=== PATIENT | female | born 1975 | race African-American/Black ===

== ENCOUNTER 2017-05-24 07:26 | Inpatient (IN) | payer BC ==
[2017-05-24] MEDS ORDERED: Sodium Chloride 0.9% 2.5 ML Syringe FLUSH PRN (08:00)
[2017-05-24] MEDS ORDERED: ceFAZolin 2 GM in Premix Bag 1 BAG IV ONE (08:00)
[2017-05-24] MEDS ORDERED: Oxytocin/0.9 % Sodium Chloride 30 UNIT/500 ML BAG IV SCH (08:00)
[2017-05-24] MEDS ORDERED: Sodium Chloride 0.9% 10 ML Syringe FLUSH PRN (08:00)
[2017-05-24] MEDS ORDERED: Citric Acid/Sodium Citrate Solution 30 ML Cup PO SCH (08:00)
[2017-05-24] MEDS ORDERED: Lactated Ringers 1,000 ML IV SCH ×2 (08:00→10:15)
--- NOTE | 2017-05-24 08:21 | PCM.PREANE ---
Preanesthetic Assessment - Procedure Proposed Procedure: section - Anesthesia/Transfusion/Family Hx Anesthesia History: Prior Anesthesia Without Reaction Family History of Anesthesia Reaction: No Transfusion History: No Prior Transfusion(s) - Review of Systems Other: Reports: None - Physical Assessment NPO Status Date: 05/23/17 NPO Status Time: 23:55 Height: 1.6 m Weight: 102.058 kg ASA Class: 2 Mental Status: Alert & Oriented x3 Airway Class: Mallampati = 3 Dentition: Reports: Normal Dentition Thyro-Mental Finger Breadths: 3 Mouth Opening Finger Breadths: 3 ROM/Head Extension: Full Lungs: Clear to Auscultation, Normal Respiratory Effort Cardiovascular: Regular Rate, Regular Rhythm - Allergies Allergies/Adverse Reactions: Allergies Allergy/AdvReac Type Severity Reaction Status Date / Time No Known Allergies Allergy Verified 07/05/16 15:40 - Blood Blood Available: Yes Product(s) Available: PRBC - Acknowledgements Anesthesia Type Planned: Spinal (GETA if Spinal not obtained.) Pt an Appropriate Candidate for the Planned Anesthesia: Yes Alternatives and Risks of Anesthesia Discussed w Pt/Guardian: Yes Pt/Guardian Understands and Agrees with Anesthesia Plan: Yes PreAnesthesia Questionnaire Cardiovascular History: Reports: Hypertension (History of gestational hypertension) Gastrointestinal History: Reports: GERD - Past Surgical History Female Surgical History: Reports: Section - SUBSTANCE USE Smoking Status *Q: Never Smoker Second Hand Smoke Exposure: No Recreational Drug Use History: No - HOME MEDS Home Medications: Home Meds Amoxicillin 875 mg PO BID #20 tablet 07/05/16 [Rx] - CURRENT (IN HOUSE) MEDS Current Meds: Current Medications Citric Acid/Sodium Citrate (Bicitra Solution) 30 ml PO .ONCE CY Cefazolin Sodium/Dextrose 2 gm (/ Premix) 50 mls @ 100 mls/hr IV ONETIME ONE Stop: 05/24/17 08:29 Lactated Ringer's (Ringers, Lactated) 1,000 mls @ 500 mls/hr IV .BOLUS CY Oxytocin/Sodium Chloride (Oxytocin 30 Unit/500 Ml-Ns) 30 unit in 500 mls @ 250 mls/hr IV TITRATE CY Sodium Chloride (Saline Flush) 10 ml FLUSH ASDIRECTED PRN PRN Reason: Keep Vein Open Sodium Chloride (Saline Flush) 2.5 ml FLUSH ASDIRECTED PRN PRN Reason: Keep Vein Open
[2017-05-24] MEDS ORDERED: Oxytocin 10 Units/1 ML SDV ONE ×3 (08:25→10:03)
[2017-05-24] MEDS ORDERED: ePHEDrine 50 MG/ML SDV ONE (08:25)
[2017-05-24] MEDS ORDERED: Morphine PF 10 MG/10 ML SDV ONE (08:25)
[2017-05-24] MEDS ORDERED: fentaNYL 100 MCG/2 ML SDV ONE (08:25)
[2017-05-24] MEDS ORDERED: Sodium Chloride 0.9% 20 ML ONE (08:26)
[2017-05-24] MEDS ORDERED: Ondansetron 4 MG/2 ML SDV ONE (08:26)
[2017-05-24] MEDS ORDERED: ceFAZolin 1 GM Vial ONE (08:30)
[2017-05-24] MEDS ORDERED: Acetaminophen/oxyCODONE 325-5 MG Tab PO PRN ×2 (08:50→10:10)
[2017-05-24] MEDS ORDERED: diphenhydrAMINE 50 MG/ML SDV IVPUSH PRN ×2 (08:51→10:10)
[2017-05-24] MEDS ORDERED: Nalbuphine 10 MG/1 ML Vial IVPUSH PRN (08:51)
[2017-05-24] MEDS ORDERED: fentaNYL 100 MCG/2 ML SDV IVPUSH PRN (08:51)
[2017-05-24] MEDS ORDERED: Naloxone 0.4 MG/ML Syringe IVPUSH PRN (08:51)
--- NOTE | 2017-05-24 09:02 | PCM.LDHP ---
L&D History of Present Illness - General Date of Service: 05/24/17 Admit Problem/Dx: Patient Status Order with Admit Dx/Problem 05/24/17 08:00 Patient Status [ADT] Routine Admission Diagnosis/Problem Admission Diagnosis/Problem Source of Information: Patient History Limitations: Reports: No Limitations - History of Present Illness Improves with: Reports: None Worsens with: Reports: None Associated Symptoms: Reports: N - Related Data Allergies/Adverse Reactions: Allergies Allergy/AdvReac Type Severity Reaction Status Date / Time No Known Allergies Allergy Verified 07/05/16 15:40 Home Medications: Home Meds Amoxicillin 875 mg PO BID #20 tablet 07/05/16 [Rx] Past Medical History Cardiovascular History: Reports: Hypertension (History of gestational hypertension) Gastrointestinal History: Reports: GERD - Past Surgical History Female Surgical History: Reports: Section Social & Family History - Family History Family Medical History: Noncontributory - Tobacco Use Smoking Status *Q: Never Smoker Second Hand Smoke Exposure: No - Caffeine Use Caffeine Use: Reports: Coffee - Recreational Drug Use Recreational Drug Use: No H&P Review of Systems - Review of Systems: Review Of Systems: See Below General: Reports: No Symptoms HEENT: Reports: No Symptoms Pulmonary: Reports: No Symptoms Cardiovascular: Reports: No Symptoms Gastrointestinal: Reports: No Symptoms Genitourinary: Reports: No Symptoms Musculoskeletal: Reports: No Symptoms Skin: Reports: No Symptoms Psychiatric: Reports: No Symptoms Neurological: Reports: No Symptoms Hematologic/Lymphatic: Reports: No Symptoms Immunologic: Reports: No Symptoms L&D Exam - Exam Exam: See Below - Vital Signs Weight: 102.058 kg - OB Specific Contraction Intensity: Mild Movement: Active Heart Tones: Present Presentation: Vertex - Exam General: Alert, Oriented HEENT: PERRLA, Conjunctiva Clear, EACs Clear, EOMI, Hearing Intact, Mucosa Moist & [place], Nares Patent, Normal Nasal Septum, Posterior Pharynx Clear, TMs Clear Neck: Supple, Trachea Midline Lungs: Clear to Auscultation, Normal Respiratory Effort Cardiovascular: Regular Rate, Regular Rhythm GI/Abdominal Exam: Normal Bowel Sounds, Soft, Non-Tender, No Organomegaly, No Distention, No Abnormal Bruit, No Mass, Pelvis Stable Rectal Exam: Normal Exam, Normal Rectal Tone Genitourinary: Normal external exam, Normal bimanual exam, Normal speculum exam Back Exam: Normal Inspection, Full Range of Motion Extremities: Normal Inspection, Normal Range of Motion, Non-Tender, No Pedal Edema, Normal Capillary Refill Skin: Warm, Dry, Intact Neurological: Cranial Nerves Intact, Reflexes Equal Bilateral Psychiatric: Alert, Normal Affect, Normal Mood - Patient Data Lab Results Last 24 hrs: Laboratory Results - last 24 hr 05/24/17 Range/Units 08:27 WBC 6.49 (4.0-11.0) K/uL RBC 6.67 H (4.30-5.90) M/uL Hgb 15.0 (12.0-16.0) g/dL Hct 42.5 (36.0-46.0) % MCV 63.7 L (80.0-98.0) fL MCH 22.5 L (27.0-32.0) pg MCHC 35.3 (31.0-37.0) g/dL RDW Std Deviation 35.5 (28.0-62.0) fl RDW Coeff of Cammie 17 H (11.0-15.0) % Plt Count 109 L (150-400) K/uL Nucleated RBC % 0.0 /100WBC Nucleated RBCs # 0 K/uL Result Diagrams: 05/24/17 08:27 Problem List Initiated/Reviewed/Updated: Yes Orders Last 24hrs: Active Orders 24 hr Category Date Time Status Patient Status [ADT] Routine ADT 05/24/17 08:00 Active Bradycardia-Neuroaxis [employer] [RC] ROUTINE Care 05/24/17 08:50 Active Non Stress Test [RC] PER UNIT ROUTINE Care 05/24/17 08:00 Active Hypertension-Neuroaxis [employer] [RC] ROUTINE Care 05/24/17 08:50 Active Hypotension-Neuroaxis [employer] [RC] ROUTINE Care 05/24/17 08:50 Active Notify Provider Vital Signs [RC] PRN Care 05/24/17 08:00 Active Oxygen Therapy [RC] PER UNIT ROUTINE Care 05/24/17 08:50 Active Procedure Site Prep Instruct [RC] ASDIRECTED Care 05/24/17 08:00 Active Up ad Maria M [RC] ASDIRECTED Care 05/24/17 08:00 Active Verify Patient Consent Obtain [RC] ASDIRECTED Care 05/24/17 08:00 Active Vital Signs [RC] PER UNIT ROUTINE Care 05/24/17 08:00 Active Vital Signs [RC] Q1H Care 05/24/17 08:50 Active TYPE AND SCREEN [BBK] Routine Lab 05/24/17 08:27 Received Acetaminophen/oxyCODONE [Percocet 325-5 MG] Med 05/24/17 08:50 Active 1 - 2 tab PO Q4H PRN Citric Acid/Sodium Citrate [Bicitra Solution] Med 05/24/17 08:00 Active 30 ml PO .ONCE Lactated Ringers [Ringers, Lactated] 1,000 ml Med 05/24/17 08:00 Active IV .BOLUS Nalbuphine [Nubain] Med 05/24/17 08:51 Active 2.5 - 10 mg IVPUSH Q3H PRN Naloxone [Narcan] Med 05/24/17 08:51 Active 0.1 mg IVPUSH ONETIME PRN Oxytocin/0.9 % Sodium Chloride [Oxytocin 30 Unit/500 ML Med 05/24/17 08:00 Active -NS] 30 unit in 500 ml IV TITRATE Sodium Chloride 0.9% [Saline Flush] Med 05/24/17 08:00 Active 10 ml FLUSH ASDIRECTED PRN Sodium Chloride 0.9% [Saline Flush] Med 05/24/17 08:00 Active 2.5 ml FLUSH ASDIRECTED PRN diphenhydrAMINE [Benadryl] Med 05/24/17 08:51 Active 25 mg IVPUSH Q4H PRN fentaNYL [Sublimaze] Med 05/24/17 08:51 Active 50 - 100 mcg IVPUSH Q30M PRN AN Neuroaxis [employer] Precaution Reflex [OM.PC] PER Oth 05/25/17 09:00 Ordered UNIT ROUTINE AN Neuroaxis [employer] Precaution Reflex [OM.PC] PER Oth 05/24/17 09:00 Ordered UNIT ROUTINE Peripheral IV Insertion Adult [OM.PC] Routine Oth 05/24/17 08:00 Ordered Schedule Procedure [COMM] Per Unit Routine Oth 05/24/17 08:00 Ordered Resuscitation Status Routine Resus Stat 05/24/17 08:00 Ordered Medication Orders Citric Acid/Sodium Citrate (Bicitra Solution) 30 ml PO .ONCE CY Diphenhydramine HCl (Benadryl) 25 mg IVPUSH Q4H PRN PRN Reason: Itching Stop: 05/25/17 08:53 Fentanyl (Sublimaze) 50 - 100 mcg IVPUSH Q30M PRN PRN Reason: Breakthrough Pain Stop: 05/25/17 08:52 Lactated Ringer's (Ringers, Lactated) 1,000 mls @ 500 mls/hr IV .BOLUS YC Last Admin: 05/24/17 08:35 Dose: 500 mls/hr Oxytocin/Sodium Chloride (Oxytocin 30 Unit/500 Ml-Ns) 30 unit in 500 mls @ 250 mls/hr IV TITRATE CY Nalbuphine HCl (Nubain) 2.5 - 10 mg IVPUSH Q3H PRN PRN Reason: Pruritis Stop: 05/25/17 08:52 Naloxone HCl (Narcan) 0.1 mg IVPUSH ONETIME PRN PRN Reason: Respiratory Depression Stop: 05/25/17 08:54 Oxycodone/Acetaminophen (Percocet 325-5 Mg) 1 - 2 tab PO Q4H PRN PRN Reason: Breakthrough Pain Stop: 05/25/17 09:00 Sodium Chloride (Saline Flush) 10 ml FLUSH ASDIRECTED PRN PRN Reason: Keep Vein Open Sodium Chloride (Saline Flush) 2.5 ml FLUSH ASDIRECTED PRN PRN Reason: Keep Vein Open Assessment/Plan Comment:: Admitted for elective repeat C/section.
[2017-05-24] MEDS ORDERED: Octyl 2-Cyanoacrylate 1 Tube ONE (10:05)
[2017-05-24] MEDS ORDERED: Lanolin 100% Cream 7 GM Tube TOP PRN (10:10)
[2017-05-24] MEDS ORDERED: Ibuprofen 800 MG Tab PO PRN (10:10)
[2017-05-24] MEDS ORDERED: Ondansetron 4 MG/2 ML SDV IV PRN (10:10)
[2017-05-24] MEDS ORDERED: Bisacodyl 10 MG Supp RECTAL PRN (10:10)
[2017-05-24] MEDS ORDERED: Ketorolac 30 MG/ML SDV ONE (10:11)
--- NOTE | 2017-05-24 10:14 | PCM.OPNOTE ---
- General Post-Op/Procedure Note Date of Surgery/Procedure: 05/24/17 Operative Procedure(s): Repeat C/section Pre Op Diagnosis: IUP 39+4 previous C/section Post-Op Diagnosis: Same Anesthesia Technique: Spinal Primary Surgeon: Quintin Villa Counter Weigher: Svitlana Rausch EBL in mLs: 650 Complications: None Condition: Good
--- NOTE | 2017-05-24 10:44 | PCM.POSTAN ---
POST ANESTHESIA ASSESSMENT - MENTAL STATUS Mental Status: Alert - VITAL SIGNS Pulse Rate: 76 SaO2: 97 Resp Rate: 14 Blood Pressure: 123/64 - RESPIRATORY Respiratory Status: Respiratory Rate WNL, Airway Patent, O2 Saturation Stable - CARDIOVASCULAR CV Status: Pulse Rate WNL, Blood Pressure Stable - GASTROINTESTINAL GI Status: No Symptoms - PAIN Pain Score: 0 (spinal level T5) - POST OP HYDRATION Hydration Status: Adequate & Stable
[2017-05-24] MEDS: Ketorolac 30 MG/ML SDV IVPUSH SCH ×3 (11:48→22:11)
[2017-05-24] MEDS: Docusate Sodium 100 MG Cap PO SCH (22:10)
--- NOTE | 2017-05-24 22:18 | OR ---
SURGEON: Quintin Villa MD DATE OF PROCEDURE: PREOPERATIVE DIAGNOSIS: Intrauterine 39 plus 4, previous section, admitted for elective repeat section. POSTOPERATIVE DIAGNOSIS: Intrauterine 39 plus 4, previous section, admitted for elective repeat section. OPERATION PERFORMED: Revision of the old section scar, repeat low transverse section. SURGEON: Dr. Villa. MANAGEMENT NURSE RN: Svitlana Rausch CNM. ANESTHESIA: Spinal, Lizzie Demian. ESTIMATED BLOOD LOSS: 650 mL. COMPLICATIONS: None. FINDINGS: Normal uterus, tubes and ovary. Female fetus, cried immediately. score reported to be 8 and 9. The weight is not available. INDICATIONS FOR SURGERY: This patient is 42. She had previous section. She is admitted for elective repeat section, and she asked for revision of her old scar. PROCEDURE IN DETAIL: The patient was brought to the OR, properly identified and after adequate level of spinal anesthesia with a Isidro catheter in the bladder, the patient was prepped and draped in sterile fashion as usual. A transverse abdominal incision was done excising the old scar in a wedged fashion and removing it without any problem. Then, the rectus fascia was opened in the direction of the incision. The 2 recti muscles were and peritoneal cavity was entered. Bladder flap was raised in the usual manner pushing the bladder away from the lower uterine segment and low transverse uterine, incision was done and extended manually with the hand. Fetus was in the vertex position, delivered without any problem, it was female, cried immediately. score reported to be 8 and 9. Weight is not available. The placenta delivered spontaneous, complete, and intact, and then repair of the lower uterine segment done with 2-0 Vicryl continuous interlocking in 2 layers. Reperitonealization done with 3-0 Vicryl continuous. The peritoneal cavity was evacuated completely from all blood and blood clot and closed with 3-0 Vicryl continuous. The rectus fascia was closed with #1 PDS double-strand continuous. The Gatito's fascia was closed with 3-0 Vicryl continuous. The skin closed with 3-0 on a Riley needle in a subcuticular fashion. Instrument and sponge count were correct. The patient tolerated the procedure well and went to recovery room in stable general condition. RICKI / LING /[id number]
[2017-05-25] MEDS: Ketorolac 30 MG/ML SDV IVPUSH SCH ×2 (03:56→10:15)
--- NOTE | 2017-05-25 09:04 | PCM48HPAN ---
Post Anesthesia Note - EVALUATION WITHIN 48HRS OF ANESTHETIC Vital Signs in Normal Range: Yes Patient Participated in Evaluation: Yes Respiratory Function Stable: Yes Airway Patent: Yes Cardiovascular Function Stable: Yes Hydration Status Stable: Yes Pain Control Satisfactory: Yes Nausea and Vomiting Control Satisfactory: Yes Mental Status Recovered: Yes
--- NOTE | 2017-05-25 09:13 | PCM.SURGPN ---
- General Info Date of Service: 05/25/17 POD#: 1 Functional Status: Reports: Pain Controlled - Review of Systems General: Reports: No Symptoms HEENT: Reports: No Symptoms Pulmonary: Reports: No Symptoms Cardiovascular: Reports: No Symptoms Gastrointestinal: Reports: No Symptoms Genitourinary: Reports: No Symptoms Musculoskeletal: Reports: No Symptoms Skin: Reports: No Symptoms Neurological: Reports: No Symptoms Psychiatric: Reports: No Symptoms - Patient Data Vitals - Most Recent: Last Vital Signs Temp 37.1 C 05/25/17 04:00 Pulse 94 05/25/17 04:00 Resp 17 05/25/17 06:00 BP 122/64 05/25/17 04:00 Pulse Ox 96 05/25/17 06:00 Weight - Most Recent: 102.058 kg I&O - Last 24 Hours: Intake & Output 05/24/17 05/25/17 05/25/17 22:59 06:59 14:59 Intake Total 2000 Output Total 100 1300 Balance -100 700 Lab Results Last 24 Hrs: Laboratory Results - last 24 hr 05/24/17 05/25/17 Range/Units 08:27 06:06 Hgb 8.6 L (12.0-16.0) g/dL Hct 25.7 L (36.0-46.0) % Blood Type O POSITIVE Antibody Screen NEGATIVE Med Orders - Current: Current Medications Bisacodyl (Dulcolax) 10 mg RECTAL .ONCE PRN PRN Reason: Constipation Citric Acid/Sodium Citrate (Bicitra Solution) 30 ml PO .ONCE CY Last Admin: 05/24/17 09:06 Dose: 30 ml Diphenhydramine HCl (Benadryl) 25 mg IVPUSH Q6H PRN PRN Reason: Itching or Nausea Docusate Sodium (Colace) 100 mg PO BID CY Last Admin: 05/24/17 22:10 Dose: 100 mg Emollient Ointment (Lansinoh Hpa) 0 gm TOP ASDIRECTED PRN PRN Reason: Sore Nipples Lactated Ringer's (Ringers, Lactated) 1,000 mls @ 500 mls/hr IV .BOLUS [facility] Last Admin: 05/24/17 08:35 Dose: 500 mls/hr Oxytocin/Sodium Chloride (Oxytocin 30 Unit/500 Ml-Ns) 30 unit in 500 mls @ 250 mls/hr IV TITRATE [facility] Lactated Ringer's (Ringers, Lactated) 1,000 mls @ 125 mls/hr IV ASDIRECTED [facility] Last Admin: 05/24/17 17:28 Dose: 125 mls/hr Ibuprofen (Motrin) 800 mg PO Q8H PRN PRN Reason: mild pain or fever Ketorolac Tromethamine (Toradol) 30 mg IVPUSH Q6H [facility] Stop: 05/25/17 10:16 Last Admin: 05/25/17 03:56 Dose: 30 mg Ondansetron HCl (Zofran) 4 mg IV Q4H PRN PRN Reason: Nausea/Vomiting Oxycodone/Acetaminophen (Percocet 325-5 Mg) 1 tab PO Q4H PRN PRN Reason: Pain (moderate 4-6) Oxycodone/Acetaminophen (Percocet 325-5 Mg) 2 tab PO Q4H PRN PRN Reason: Pain (moderate 4-6) Sodium Chloride (Saline Flush) 10 ml FLUSH ASDIRECTED PRN PRN Reason: Keep Vein Open Sodium Chloride (Saline Flush) 2.5 ml FLUSH ASDIRECTED PRN PRN Reason: Keep Vein Open Discontinued Medications Cefazolin Sodium (Ancef) Confirm Administered Dose 2 gm .ROUTE .STK-MED ONE Stop: 05/24/17 08:31 Diphenhydramine HCl (Benadryl) 25 mg IVPUSH Q4H PRN PRN Reason: Itching Stop: 05/25/17 08:53 Last Admin: 05/25/17 03:56 Dose: 25 mg Ephedrine Sulfate (Ephedrine Sulfate) Confirm Administered Dose 50 mg .ROUTE .STK-MED ONE Stop: 05/24/17 08:26 Fentanyl (Sublimaze) Confirm Administered Dose 100 mcg .ROUTE .STK-MED ONE Stop: 05/24/17 08:26 Fentanyl (Sublimaze) 50 - 100 mcg IVPUSH Q30M PRN PRN Reason: Breakthrough Pain Stop: 05/25/17 08:52 Cefazolin Sodium/Dextrose 2 gm (/ Premix) 50 mls @ 100 mls/hr IV ONETIME ONE Stop: 05/24/17 08:29 Sodium Chloride (Normal Saline) Confirm Administered Dose 20 mls @ as directed .ROUTE .STK-MED ONE Stop: 05/24/17 08:27 Ketorolac Tromethamine (Toradol) Confirm Administered Dose 30 mg .ROUTE .STK- MED ONE Stop: 05/24/17 10:12 Morphine Sulfate (Duramorph Pf) Confirm Administered Dose 10 mg .ROUTE .STK-MED ONE Stop: 05/24/17 08:26 Nalbuphine HCl (Nubain) 2.5 - 10 mg IVPUSH Q3H PRN PRN Reason: Pruritis Stop: 05/25/17 08:52 Last Admin: 05/24/17 10:52 Dose: 5 mg Naloxone HCl (Narcan) 0.1 mg IVPUSH ONETIME PRN PRN Reason: Respiratory Depression Stop: 05/25/17 08:54 Octyl Cyanoacrylate (Dermabond Advance) Confirm Administered Dose 1 applic .ROUTE .STK-MED ONE Stop: 05/24/17 10:06 Ondansetron HCl (Zofran) Confirm Administered Dose 4 mg .ROUTE .STK-MED ONE Stop: 05/24/17 08:27 Oxycodone/Acetaminophen (Percocet 325-5 Mg) 1 - 2 tab PO Q4H PRN PRN Reason: Breakthrough Pain Stop: 05/25/17 09:00 Oxytocin (Pitocin) Confirm Administered Dose 10 unit .ROUTE .STK-MED ONE Stop: 05/24/17 08:26 Oxytocin (Pitocin) Confirm Administered Dose 10 unit .ROUTE .STK-MED ONE Stop: 05/24/17 08:26 Oxytocin (Pitocin) Confirm Administered Dose 20 unit .ROUTE .STK-MED ONE Stop: 05/24/17 10:04 - Exam Wound/Incisions: Healing Well General: Alert, Oriented HEENT: Pupils Equal Neck: Supple Lungs: Clear to Auscultation, Normal Respiratory Effort Cardiovascular: Regular Rate, Regular Rhythm GI/Abdominal Exam: Normal Bowel Sounds, Soft, Non-Tender, No Organomegaly, No Distention, No Abnormal Bruit, No Mass, Pelvis Stable Extremities: Normal Inspection, Normal Range of Motion, Non-Tender, No Pedal Edema, Normal Capillary Refill Skin: Warm, Dry, Intact Neurological: No New Focal Deficit Psy/Mental Status: Alert, Normal Affect, Normal Mood - Problem List Review Problem List Initiated/Reviewed/Updated: Yes - My Orders Last 24 Hours: Active Orders 24 hr Category Date Time Status Patient Status [ADT] Routine ADT 05/24/17 10:11 Active Ambulate [RC] PER UNIT ROUTINE Care 05/24/17 10:11 Active Antiembolic Devices [RC] PER UNIT ROUTINE Care 05/24/17 10:11 Active Bradycardia-Neuroaxis [employer] [RC] ROUTINE Care 05/24/17 08:50 Active Communication Order [RC] PER UNIT ROUTINE Care 05/24/17 10:11 Active Communication Order [RC] PER UNIT ROUTINE Care 05/24/17 10:11 Active Communication Order [RC] Per Unit Routine Care 05/24/17 10:11 Active Hypertension-Neuroaxis [employer] [RC] ROUTINE Care 05/24/17 08:50 Active Hypotension-Neuroaxis [employer] [RC] ROUTINE Care 05/24/17 08:50 Active May Shower [RC] ASDIRECTED Care 05/24/17 10:11 Active Oxygen Therapy [RC] PER UNIT ROUTINE Care 05/24/17 08:50 Active RT Incentive Spirometry [RC] Q2HWA Care 05/24/17 10:11 Active Vital Signs [RC] PER UNIT ROUTINE Care 05/24/17 10:11 Active Vital Signs [RC] Q1H Care 05/24/17 08:50 Active Regular Diet [DIET] Diet 05/24/17 Lunch Active Acetaminophen/oxyCODONE [Percocet 325-5 MG] Med 05/24/17 10:10 Active 1 tab PO Q4H PRN Acetaminophen/oxyCODONE [Percocet 325-5 MG] Med 05/24/17 10:10 Active 2 tab PO Q4H PRN Bisacodyl [Dulcolax] Med 05/24/17 10:10 Active 10 mg RECTAL .ONCE PRN Docusate Sodium [Colace] Med 05/24/17 21:00 Active 100 mg PO BID Ibuprofen [Motrin] Med 05/24/17 10:10 Active 800 mg PO Q8H PRN Ketorolac [Toradol] Med 05/24/17 10:15 Active 30 mg IVPUSH Q6H Lactated Ringers [Ringers, Lactated] 1,000 ml Med 05/24/17 10:15 Active IV ASDIRECTED Lanolin [Lansinoh HPA] Med 05/24/17 10:10 Active See Dose Instructions TOP ASDIRECTED PRN Ondansetron [Zofran] Med 05/24/17 10:10 Active 4 mg IV Q4H PRN diphenhydrAMINE [Benadryl] Med 05/24/17 10:10 Active 25 mg IVPUSH Q6H PRN AN Neuroaxis [employer] Precaution Reflex [OM.PC] PER Ot 05/25/17 09:00 Ordered UNIT ROUTINE AN Neuroaxis [employer] Precaution Reflex [OM.PC] PER Ot 05/24/17 09:00 Ordered UNIT ROUTINE Assess Lochia [WOMSER] Per Unit Routine Ot 05/24/17 10:11 Ordered Assess Uterine Involution [WOMSER] Per Unit Routine Ot 05/24/17 10:11 Ordered Breast Pump [WOMSER] Per Unit Routine Ot 05/24/17 10:11 Ordered Peripheral IV Discontinue [OM.PC] Routine Ot 05/24/17 10:11 Ordered Sequential Compression Device [OM.PC] Per Unit Routine Ot 05/24/17 10:11 Ordered Medication Orders Bisacodyl (Dulcolax) 10 mg RECTAL .ONCE PRN PRN Reason: Constipation Citric Acid/Sodium Citrate (Bicitra Solution) 30 ml PO .ONCE [facility] Last Admin: 05/24/17 09:06 Dose: 30 ml Diphenhydramine HCl (Benadryl) 25 mg IVPUSH Q6H PRN PRN Reason: Itching or Nausea Docusate Sodium (Colace) 100 mg PO BID [facility] Last Admin: 05/24/17 22:10 Dose: 100 mg Emollient Ointment (Lansinoh Hpa) 0 gm TOP ASDIRECTED PRN PRN Reason: Sore Nipples Lactated Ringer's (Ringers, Lactated) 1,000 mls @ 500 mls/hr IV .BOLUS [facility] Last Admin: 05/24/17 08:35 Dose: 500 mls/hr Oxytocin/Sodium Chloride (Oxytocin 30 Unit/500 Ml-Ns) 30 unit in 500 mls @ 250 mls/hr IV TITRATE [facility] Lactated Ringer's (Ringers, Lactated) 1,000 mls @ 125 mls/hr IV ASDIRECTED [facility] Last Admin: 05/24/17 17:28 Dose: 125 mls/hr Ibuprofen (Motrin) 800 mg PO Q8H PRN PRN Reason: mild pain or fever Ketorolac Tromethamine (Toradol) 30 mg IVPUSH Q6H [facility] Stop: 05/25/17 10:16 Last Admin: 05/25/17 03:56 Dose: 30 mg Admin: 05/24/17 22:11 Dose: 30 mg Admin: 05/24/17 16:01 Dose: 30 mg Admin: 05/24/17 11:48 Dose: Ondansetron HCl (Zofran) 4 mg IV Q4H PRN PRN Reason: Nausea/Vomiting Oxycodone/Acetaminophen (Percocet 325-5 Mg) 1 tab PO Q4H PRN PRN Reason: Pain (moderate 4-6) Oxycodone/Acetaminophen (Percocet 325-5 Mg) 2 tab PO Q4H PRN PRN Reason: Pain (moderate 4-6) Sodium Chloride (Saline Flush) 10 ml FLUSH ASDIRECTED PRN PRN Reason: Keep Vein Open Sodium Chloride (Saline Flush) 2.5 ml FLUSH ASDIRECTED PRN PRN Reason: Keep Vein Open - Assessment Assessment (Free Text/Narrative):: S/P C/Section Doing well
[2017-05-25] MEDS: Docusate Sodium 100 MG Cap PO SCH ×2 (10:15→20:32)
--- NOTE | 2017-05-25 10:34 | PCM.PNPP ---
- General Info Date of Service: 05/25/17 Admission Dx/Problem (Free Text): Patient Status Order with Admit Dx/Problem 05/24/17 08:00 Patient Status [ADT] Routine Admission Diagnosis/Problem Admission Diagnosis/Problem Functional Status: Reports: Pain Controlled, Tolerating Diet, Ambulating, Other (Isidro to bsbag) - Review of Systems General: Reports: No Symptoms HEENT: Reports: No Symptoms Pulmonary: Reports: No Symptoms Cardiovascular: Reports: No Symptoms Gastrointestinal: Reports: No Symptoms Genitourinary: Reports: No Symptoms Musculoskeletal: Reports: No Symptoms Skin: Reports: No Symptoms Neurological: Reports: No Symptoms Psychiatric: Reports: No Symptoms - General Info Date of Service: 05/25/17 - Patient Data Vital Signs - Most Recent: Last Vital Signs Temp 37.1 C 05/25/17 04:00 Pulse 94 05/25/17 04:00 Resp 17 05/25/17 06:00 BP 122/64 05/25/17 04:00 Pulse Ox 96 05/25/17 06:00 Weight - Most Recent: 102.058 kg I&O - Last 24 Hours: Intake & Output 05/24/17 05/25/17 05/25/17 22:59 06:59 14:59 Intake Total 2000 Output Total 100 1300 Balance -100 700 Lab Results - Last 24 Hours: Laboratory Results - last 24 hr 05/25/17 Range/Units 06:06 Hgb 8.6 L (12.0-16.0) g/dL Hct 25.7 L (36.0-46.0) % Med Orders - Current: Current Medications Bisacodyl (Dulcolax) 10 mg RECTAL .ONCE PRN PRN Reason: Constipation Citric Acid/Sodium Citrate (Bicitra Solution) 30 ml PO .ONCE [facility] Last Admin: 05/24/17 09:06 Dose: 30 ml Diphenhydramine HCl (Benadryl) 25 mg IVPUSH Q6H PRN PRN Reason: Itching or Nausea Docusate Sodium (Colace) 100 mg PO BID [facility] Last Admin: 05/25/17 10:15 Dose: 100 mg Emollient Ointment (Lansinoh Hpa) 0 gm TOP ASDIRECTED PRN PRN Reason: Sore Nipples Lactated Ringer's (Ringers, Lactated) 1,000 mls @ 500 mls/hr IV .BOLUS [facility] Last Admin: 05/24/17 08:35 Dose: 500 mls/hr Oxytocin/Sodium Chloride (Oxytocin 30 Unit/500 Ml-Ns) 30 unit in 500 mls @ 250 mls/hr IV TITRATE [facility] Lactated Ringer's (Ringers, Lactated) 1,000 mls @ 125 mls/hr IV ASDIRECTED [facility] Last Admin: 05/24/17 17:28 Dose: 125 mls/hr Ibuprofen (Motrin) 800 mg PO Q8H PRN PRN Reason: mild pain or fever Ondansetron HCl (Zofran) 4 mg IV Q4H PRN PRN Reason: Nausea/Vomiting Oxycodone/Acetaminophen (Percocet 325-5 Mg) 1 tab PO Q4H PRN PRN Reason: Pain (moderate 4-6) Oxycodone/Acetaminophen (Percocet 325-5 Mg) 2 tab PO Q4H PRN PRN Reason: Pain (moderate 4-6) Sodium Chloride (Saline Flush) 10 ml FLUSH ASDIRECTED PRN PRN Reason: Keep Vein Open Sodium Chloride (Saline Flush) 2.5 ml FLUSH ASDIRECTED PRN PRN Reason: Keep Vein Open Discontinued Medications Cefazolin Sodium (Ancef) Confirm Administered Dose 2 gm .ROUTE .STK-MED ONE Stop: 05/24/17 08:31 Diphenhydramine HCl (Benadryl) 25 mg IVPUSH Q4H PRN PRN Reason: Itching Stop: 05/25/17 08:53 Last Admin: 05/25/17 03:56 Dose: 25 mg Ephedrine Sulfate (Ephedrine Sulfate) Confirm Administered Dose 50 mg .ROUTE .STK-MED ONE Stop: 05/24/17 08:26 Fentanyl (Sublimaze) Confirm Administered Dose 100 mcg .ROUTE .STK-MED ONE Stop: 05/24/17 08:26 Fentanyl (Sublimaze) 50 - 100 mcg IVPUSH Q30M PRN PRN Reason: Breakthrough Pain Stop: 05/25/17 08:52 Cefazolin Sodium/Dextrose 2 gm (/ Premix) 50 mls @ 100 mls/hr IV ONETIME ONE Stop: 05/24/17 08:29 Sodium Chloride (Normal Saline) Confirm Administered Dose 20 mls @ as directed .ROUTE .STK-MED ONE Stop: 05/24/17 08:27 Ketorolac Tromethamine (Toradol) 30 mg IVPUSH Q6H CY Stop: 05/25/17 10:16 Last Admin: 05/25/17 10:15 Dose: 30 mg Ketorolac Tromethamine (Toradol) Confirm Administered Dose 30 mg .ROUTE .STK- MED ONE Stop: 05/24/17 10:12 Morphine Sulfate (Duramorph Pf) Confirm Administered Dose 10 mg .ROUTE .STK-MED ONE Stop: 05/24/17 08:26 Nalbuphine HCl (Nubain) 2.5 - 10 mg IVPUSH Q3H PRN PRN Reason: Pruritis Stop: 05/25/17 08:52 Last Admin: 05/24/17 10:52 Dose: 5 mg Naloxone HCl (Narcan) 0.1 mg IVPUSH ONETIME PRN PRN Reason: Respiratory Depression Stop: 05/25/17 08:54 Octyl Cyanoacrylate (Dermabond Advance) Confirm Administered Dose 1 applic .ROUTE .STK-MED ONE Stop: 05/24/17 10:06 Ondansetron HCl (Zofran) Confirm Administered Dose 4 mg .ROUTE .STK-MED ONE Stop: 05/24/17 08:27 Oxycodone/Acetaminophen (Percocet 325-5 Mg) 1 - 2 tab PO Q4H PRN PRN Reason: Breakthrough Pain Stop: 05/25/17 09:00 Oxytocin (Pitocin) Confirm Administered Dose 10 unit .ROUTE .STK-MED ONE Stop: 05/24/17 08:26 Oxytocin (Pitocin) Confirm Administered Dose 10 unit .ROUTE .STK-MED ONE Stop: 05/24/17 08:26 Oxytocin (Pitocin) Confirm Administered Dose 20 unit .ROUTE .STK-MED ONE Stop: 05/24/17 10:04 - Interaction Infant Disposition, : [place] in Room with Family Infant Interaction: Holding Infant Feeding: Breastfed Infant; Nursed Well Support Person: Significant Other - Recovery Exam Fundal Tone: Firm Fundal Level: 1 Fingerbreadths Above Umbilicus Fundal Placement: Midline Lochia Amount: Scant Lochia Color: Rubra/Red Perineum Description: Intact, Minimal Bruising/Swelling Bladder Status: Indwelling Catheter in Place Urinary Elimination: Indwelling Catheter - Exam General: Alert, Oriented, Cooperative, No Acute Distress Lungs: Clear to Auscultation, Normal Respiratory Effort Cardiovascular: Regular Rate, Regular Rhythm, No Murmurs GI/Abdominal Exam: Soft, Non-Tender, No Organomegaly Extremities: Normal Range of Motion, Non-Tender, No Pedal Edema, Normal Capillary Refill Skin: Warm, Dry, Intact Wound/Incisions: Healing Well Neurological: No New Focal Deficit, Normal Speech, Normal Tone Psy/Mental Status: Alert, Normal Affect, Normal Mood - Problem List & Annotations (1) Supervision of normal IUP (intrauterine ) in multigravida SNOMED Code(s): 820258507, 320975681 Code(s): Z34.80 - ENCOUNTER FOR SUPRVSN OF NORMAL , UNSP TRIMESTER Status: Acute Priority: High Current Visit: Yes Qualifiers: Trimester: third trimester Qualified Code(s): Z34.83 - Encounter for supervision of other normal , third trimester (2) Status post repeat low transverse section SNOMED Code(s): 487228518, 677328754, 512235262 Code(s): Z98.891 - HISTORY OF UTERINE SCAR FROM PREVIOUS SURGERY Status: Acute Priority: High Current Visit: Yes - Problem List Review Problem List Initiated/Reviewed/Updated: Yes - Assessment Assessment:: Stable, VSS, AF, Hgb drop from 15 to 8.6, no symptomatic. Bleeding scant. Breast feeding very well. - Plan Plan:: Admitted for elective repeat C/section. PP day 1 Cont pp plan of care. May d/c in am if continued stable.
[2017-05-25] MEDS: Acetaminophen/oxyCODONE 325-5 MG Tab PO PRN (20:32)
[2017-05-26] MEDS: Acetaminophen/oxyCODONE 325-5 MG Tab PO PRN ×3 (01:58→12:02)
--- NOTE | 2017-05-26 07:42 | PCM.DCSUM1 ---
Discharge Summary - Hospital Course Free Text/Narrative:: Discharge home with . Follow up 10 days for incision check and 6 weeks for post exam or sooner if needed. - Discharge Data Discharge Date: 05/26/17 Discharge Disposition: Home, Self-Care 01 Condition: Good - Discharge Diagnosis/Problem(s) (1) Supervision of normal IUP (intrauterine ) in multigravida SNOMED Code(s): 033601491, 883274410 ICD Code: Z34.80 - ENCOUNTER FOR SUPRVSN OF NORMAL , UNSP TRIMESTER Status: Acute Priority: High Current Visit: Yes Qualifiers: Trimester: third trimester Qualified Code(s): Z34.83 - Encounter for supervision of other normal , third trimester (2) Status post repeat low transverse section SNOMED Code(s): 946824420, 827059860, 227280203 ICD Code: Z98.891 - HISTORY OF UTERINE SCAR FROM PREVIOUS SURGERY Status: Acute Priority: High Current Visit: Yes - Patient Summary/Data Operative Procedure(s) Performed: Repeat C/section - Patient Instructions Diet: Usual Diet as Tolerated Activity: As Tolerated, No Strenuous Activities, Rest and Relax Today Driving: Do Not Drive Showering/Bathing: May Shower Wound/Incision Care: Keep Operative Site/Wound Site Clean and Dry Notify Provider of: Fever, Increased Pain, Swelling and Redness, Drainage, Nausea and/or Vomiting Other/Special Instructions: Discharge home with . Follow up 10 days for incision check and 6 weeks for post exam or sooner if needed. - Discharge Plan Home Medications: Home Meds Amoxicillin 875 mg PO BID #20 tablet 07/05/16 [Rx] - General Info Date of Service: 05/26/17 Admission Dx/Problem (Free Text: Patient Status Order with Admit Dx/Problem 05/24/17 08:00 Patient Status [ADT] Routine Admission Diagnosis/Problem Admission Diagnosis/Problem Functional Status: Reports: Pain Controlled, Tolerating Diet, Ambulating, Urinating - Review of Systems General: Reports: No Symptoms HEENT: Reports: No Symptoms Pulmonary: Reports: No Symptoms Cardiovascular: Reports: No Symptoms Gastrointestinal: Reports: No Symptoms Genitourinary: Reports: No Symptoms Musculoskeletal: Reports: No Symptoms Skin: Reports: No Symptoms Neurological: Reports: No Symptoms Psychiatric: Reports: No Symptoms - Patient Data Vitals - Most Recent: Last Vital Signs Temp 36.9 C 05/25/17 23:58 Pulse 95 05/26/17 04:30 Resp 20 05/26/17 04:30 BP 142/72 H 05/26/17 04:30 Pulse Ox 99 05/26/17 04:30 Weight - Most Recent: 102.058 kg Med Orders - Current: Current Medications Bisacodyl (Dulcolax) 10 mg RECTAL .ONCE PRN PRN Reason: Constipation Citric Acid/Sodium Citrate (Bicitra Solution) 30 ml PO .ONCE [facility] Last Admin: 05/24/17 09:06 Dose: 30 ml Diphenhydramine HCl (Benadryl) 25 mg IVPUSH Q6H PRN PRN Reason: Itching or Nausea Docusate Sodium (Colace) 100 mg PO BID [facility] Last Admin: 05/25/17 20:32 Dose: 100 mg Emollient Ointment (Lansinoh Hpa) 0 gm TOP ASDIRECTED PRN PRN Reason: Sore Nipples Lactated Ringer's (Ringers, Lactated) 1,000 mls @ 500 mls/hr IV .BOLUS [facility] Last Admin: 05/24/17 08:35 Dose: 500 mls/hr Oxytocin/Sodium Chloride (Oxytocin 30 Unit/500 Ml-Ns) 30 unit in 500 mls @ 250 mls/hr IV TITRATE [facility] Lactated Ringer's (Ringers, Lactated) 1,000 mls @ 125 mls/hr IV ASDIRECTED [facility] Last Admin: 05/24/17 17:28 Dose: 125 mls/hr Ibuprofen (Motrin) 800 mg PO Q8H PRN PRN Reason: mild pain or fever Last Admin: 05/25/17 19:34 Dose: 800 mg Ondansetron HCl (Zofran) 4 mg IV Q4H PRN PRN Reason: Nausea/Vomiting Oxycodone/Acetaminophen (Percocet 325-5 Mg) 1 tab PO Q4H PRN PRN Reason: Pain (moderate 4-6) Last Admin: 05/26/17 01:58 Dose: 1 tab Oxycodone/Acetaminophen (Percocet 325-5 Mg) 2 tab PO Q4H PRN PRN Reason: Pain (moderate 4-6) Sodium Chloride (Saline Flush) 10 ml FLUSH ASDIRECTED PRN PRN Reason: Keep Vein Open Sodium Chloride (Saline Flush) 2.5 ml FLUSH ASDIRECTED PRN PRN Reason: Keep Vein Open Discontinued Medications Cefazolin Sodium (Ancef) Confirm Administered Dose 2 gm .ROUTE .STK-MED ONE Stop: 05/24/17 08:31 Diphenhydramine HCl (Benadryl) 25 mg IVPUSH Q4H PRN PRN Reason: Itching Stop: 05/25/17 08:53 Last Admin: 05/25/17 03:56 Dose: 25 mg Ephedrine Sulfate (Ephedrine Sulfate) Confirm Administered Dose 50 mg .ROUTE .STK-MED ONE Stop: 05/24/17 08:26 Fentanyl (Sublimaze) Confirm Administered Dose 100 mcg .ROUTE .STK-MED ONE Stop: 05/24/17 08:26 Fentanyl (Sublimaze) 50 - 100 mcg IVPUSH Q30M PRN PRN Reason: Breakthrough Pain Stop: 05/25/17 08:52 Cefazolin Sodium/Dextrose 2 gm (/ Premix) 50 mls @ 100 mls/hr IV ONETIME ONE Stop: 05/24/17 08:29 Last Admin: 05/25/17 21:09 Dose: Not Given Sodium Chloride (Normal Saline) Confirm Administered Dose 20 mls @ as directed .ROUTE .STK-MED ONE Stop: 05/24/17 08:27 Ketorolac Tromethamine (Toradol) 30 mg IVPUSH Q6H CY Stop: 05/25/17 10:16 Last Admin: 05/25/17 10:15 Dose: 30 mg Ketorolac Tromethamine (Toradol) Confirm Administered Dose 30 mg .ROUTE .STK- MED ONE Stop: 05/24/17 10:12 Morphine Sulfate (Duramorph Pf) Confirm Administered Dose 10 mg .ROUTE .STK-MED ONE Stop: 05/24/17 08:26 Nalbuphine HCl (Nubain) 2.5 - 10 mg IVPUSH Q3H PRN PRN Reason: Pruritis Stop: 05/25/17 08:52 Last Admin: 05/24/17 10:52 Dose: 5 mg Naloxone HCl (Narcan) 0.1 mg IVPUSH ONETIME PRN PRN Reason: Respiratory Depression Stop: 05/25/17 08:54 Octyl Cyanoacrylate (Dermabond Advance) Confirm Administered Dose 1 applic .ROUTE .STK-MED ONE Stop: 05/24/17 10:06 Ondansetron HCl (Zofran) Confirm Administered Dose 4 mg .ROUTE .STK-MED ONE Stop: 05/24/17 08:27 Oxycodone/Acetaminophen (Percocet 325-5 Mg) 1 - 2 tab PO Q4H PRN PRN Reason: Breakthrough Pain Stop: 05/25/17 09:00 Oxytocin (Pitocin) Confirm Administered Dose 10 unit .ROUTE .STK-MED ONE Stop: 05/24/17 08:26 Oxytocin (Pitocin) Confirm Administered Dose 10 unit .ROUTE .STK-MED ONE Stop: 05/24/17 08:26 Oxytocin (Pitocin) Confirm Administered Dose 20 unit .ROUTE .STK-MED ONE Stop: 05/24/17 10:04 - Exam General: Reports: Alert, Oriented, Cooperative, No Acute Distress Lungs: Reports: Clear to Auscultation, Normal Respiratory Effort Cardiovascular: Reports: Regular Rate, Regular Rhythm GI/Abdominal Exam: Normal Bowel Sounds, Soft, No Distention (Female) Exam: Vaginal Bleeding Rectal (Female) Exam: Deferred Back Exam: Reports: Full Range of Motion Extremities: Normal Range of Motion, Non-Tender, No Pedal Edema, Normal Capillary Refill Skin: Reports: Warm, Dry, Intact Wound/Incisions: Reports: Healing Well, Drainage (scant pink on talfa pad.) Neurological: Reports: No New Focal Deficit, Normal Speech, Normal Tone Psy/Mental Status: Reports: Alert, Normal Affect, Normal Mood *Q Meaningful Use (DIS) - VTE *Q VTE Criteria *Q: - Stroke *Q Stroke Criteria *Q: - AMI *Q AMI Criteria *Q:
[2017-05-26 08:07] VITALS: BP 136/79
--- NOTE | 2017-05-26 10:53 | PCM.SURGPN ---
- General Info Date of Service: 05/26/17 POD#: 2 Functional Status: Reports: Pain Controlled - Review of Systems General: Reports: No Symptoms HEENT: Reports: No Symptoms Pulmonary: Reports: No Symptoms Cardiovascular: Reports: No Symptoms Gastrointestinal: Reports: No Symptoms Genitourinary: Reports: No Symptoms Musculoskeletal: Reports: No Symptoms Skin: Reports: No Symptoms Neurological: Reports: No Symptoms Psychiatric: Reports: No Symptoms - Patient Data Vitals - Most Recent: Last Vital Signs Temp 36.8 C 05/26/17 08:04 Pulse 99 05/26/17 08:04 Resp 20 05/26/17 08:04 BP 136/79 05/26/17 08:04 Pulse Ox 100 05/26/17 08:04 Weight - Most Recent: 102.058 kg Med Orders - Current: Current Medications Bisacodyl (Dulcolax) 10 mg RECTAL .ONCE PRN PRN Reason: Constipation Citric Acid/Sodium Citrate (Bicitra Solution) 30 ml PO .ONCE [facility] Last Admin: 05/24/17 09:06 Dose: 30 ml Diphenhydramine HCl (Benadryl) 25 mg IVPUSH Q6H PRN PRN Reason: Itching or Nausea Docusate Sodium (Colace) 100 mg PO BID [facility] Last Admin: 05/25/17 20:32 Dose: 100 mg Emollient Ointment (Lansinoh Hpa) 0 gm TOP ASDIRECTED PRN PRN Reason: Sore Nipples Lactated Ringer's (Ringers, Lactated) 1,000 mls @ 500 mls/hr IV .BOLUS [facility] Last Admin: 05/24/17 08:35 Dose: 500 mls/hr Oxytocin/Sodium Chloride (Oxytocin 30 Unit/500 Ml-Ns) 30 unit in 500 mls @ 250 mls/hr IV TITRATE [facility] Lactated Ringer's (Ringers, Lactated) 1,000 mls @ 125 mls/hr IV ASDIRECTED [facility] Last Admin: 05/24/17 17:28 Dose: 125 mls/hr Ibuprofen (Motrin) 800 mg PO Q8H PRN PRN Reason: mild pain or fever Last Admin: 05/25/17 19:34 Dose: 800 mg Ondansetron HCl (Zofran) 4 mg IV Q4H PRN PRN Reason: Nausea/Vomiting Oxycodone/Acetaminophen (Percocet 325-5 Mg) 1 tab PO Q4H PRN PRN Reason: Pain (moderate 4-6) Last Admin: 05/26/17 07:48 Dose: 1 tab Oxycodone/Acetaminophen (Percocet 325-5 Mg) 2 tab PO Q4H PRN PRN Reason: Pain (moderate 4-6) Sodium Chloride (Saline Flush) 10 ml FLUSH ASDIRECTED PRN PRN Reason: Keep Vein Open Sodium Chloride (Saline Flush) 2.5 ml FLUSH ASDIRECTED PRN PRN Reason: Keep Vein Open Discontinued Medications Cefazolin Sodium (Ancef) Confirm Administered Dose 2 gm .ROUTE .STK-MED ONE Stop: 05/24/17 08:31 Diphenhydramine HCl (Benadryl) 25 mg IVPUSH Q4H PRN PRN Reason: Itching Stop: 05/25/17 08:53 Last Admin: 05/25/17 03:56 Dose: 25 mg Ephedrine Sulfate (Ephedrine Sulfate) Confirm Administered Dose 50 mg .ROUTE .STK-MED ONE Stop: 05/24/17 08:26 Fentanyl (Sublimaze) Confirm Administered Dose 100 mcg .ROUTE .STK-MED ONE Stop: 05/24/17 08:26 Fentanyl (Sublimaze) 50 - 100 mcg IVPUSH Q30M PRN PRN Reason: Breakthrough Pain Stop: 05/25/17 08:52 Cefazolin Sodium/Dextrose 2 gm (/ Premix) 50 mls @ 100 mls/hr IV ONETIME ONE Stop: 05/24/17 08:29 Last Admin: 05/25/17 21:09 Dose: Not Given Sodium Chloride (Normal Saline) Confirm Administered Dose 20 mls @ as directed .ROUTE .STK-MED ONE Stop: 05/24/17 08:27 Ketorolac Tromethamine (Toradol) 30 mg IVPUSH Q6H CY Stop: 05/25/17 10:16 Last Admin: 05/25/17 10:15 Dose: 30 mg Ketorolac Tromethamine (Toradol) Confirm Administered Dose 30 mg .ROUTE .STK- MED ONE Stop: 05/24/17 10:12 Morphine Sulfate (Duramorph Pf) Confirm Administered Dose 10 mg .ROUTE .STK-MED ONE Stop: 05/24/17 08:26 Nalbuphine HCl (Nubain) 2.5 - 10 mg IVPUSH Q3H PRN PRN Reason: Pruritis Stop: 05/25/17 08:52 Last Admin: 05/24/17 10:52 Dose: 5 mg Naloxone HCl (Narcan) 0.1 mg IVPUSH ONETIME PRN PRN Reason: Respiratory Depression Stop: 05/25/17 08:54 Octyl Cyanoacrylate (Dermabond Advance) Confirm Administered Dose 1 applic .ROUTE .STK-MED ONE Stop: 05/24/17 10:06 Ondansetron HCl (Zofran) Confirm Administered Dose 4 mg .ROUTE .STK-MED ONE Stop: 05/24/17 08:27 Oxycodone/Acetaminophen (Percocet 325-5 Mg) 1 - 2 tab PO Q4H PRN PRN Reason: Breakthrough Pain Stop: 05/25/17 09:00 Oxytocin (Pitocin) Confirm Administered Dose 10 unit .ROUTE .STK-MED ONE Stop: 05/24/17 08:26 Oxytocin (Pitocin) Confirm Administered Dose 10 unit .ROUTE .STK-MED ONE Stop: 05/24/17 08:26 Oxytocin (Pitocin) Confirm Administered Dose 20 unit .ROUTE .STK-MED ONE Stop: 05/24/17 10:04 - Exam Wound/Incisions: Healing Well General: Alert, Oriented HEENT: Pupils Equal Neck: Supple Lungs: Clear to Auscultation, Normal Respiratory Effort Cardiovascular: Regular Rate, Regular Rhythm GI/Abdominal Exam: Normal Bowel Sounds, Soft, Non-Tender, No Organomegaly, No Distention, No Abnormal Bruit, No Mass, Pelvis Stable Extremities: Normal Inspection, Normal Range of Motion, Non-Tender, No Pedal Edema, Normal Capillary Refill Skin: Warm, Dry, Intact Neurological: No New Focal Deficit Psy/Mental Status: Alert, Normal Affect, Normal Mood - Problem List Review Problem List Initiated/Reviewed/Updated: Yes - My Orders Last 24 Hours: Active Orders 24 hr Category Date Time Status Ready for Discharge [RC] PER UNIT ROUTINE Care 05/26/17 07:42 Active Medication Orders Bisacodyl (Dulcolax) 10 mg RECTAL .ONCE PRN PRN Reason: Constipation Citric Acid/Sodium Citrate (Bicitra Solution) 30 ml PO .ONCE [facility] Last Admin: 05/24/17 09:06 Dose: 30 ml Diphenhydramine HCl (Benadryl) 25 mg IVPUSH Q6H PRN PRN Reason: Itching or Nausea Docusate Sodium (Colace) 100 mg PO BID [facility] Last Admin: 05/25/17 20:32 Dose: 100 mg Admin: 05/25/17 10:15 Dose: 100 mg Admin: 05/24/17 22:10 Dose: 100 mg Emollient Ointment (Lansinoh Hpa) 0 gm TOP ASDIRECTED PRN PRN Reason: Sore Nipples Lactated Ringer's (Ringers, Lactated) 1,000 mls @ 500 mls/hr IV .BOLUS [facility] Last Admin: 05/24/17 08:35 Dose: 500 mls/hr Oxytocin/Sodium Chloride (Oxytocin 30 Unit/500 Ml-Ns) 30 unit in 500 mls @ 250 mls/hr IV TITRATE [facility] Lactated Ringer's (Ringers, Lactated) 1,000 mls @ 125 mls/hr IV ASDIRECTED [facility], [facility] Last Admin: 05/24/17 17:28 Dose: 125 mls/hr Ibuprofen (Motrin) 800 mg PO Q8H PRN PRN Reason: mild pain or fever Last Admin: 05/25/17 19:34 Dose: 800 mg Ondansetron HCl (Zofran) 4 mg IV Q4H PRN PRN Reason: Nausea/Vomiting Oxycodone/Acetaminophen (Percocet 325-5 Mg) 1 tab PO Q4H PRN PRN Reason: Pain (moderate 4-6) Last Admin: 05/26/17 07:48 Dose: 1 tab Admin: 05/26/17 01:58 Dose: 1 tab Admin: 05/25/17 20:32 Dose: 1 tab Oxycodone/Acetaminophen (Percocet 325-5 Mg) 2 tab PO Q4H PRN PRN Reason: Pain (moderate 4-6) Sodium Chloride (Saline Flush) 10 ml FLUSH ASDIRECTED PRN PRN Reason: Keep Vein Open Sodium Chloride (Saline Flush) 2.5 ml FLUSH ASDIRECTED PRN PRN Reason: Keep Vein Open - Assessment Assessment (Free Text/Narrative):: Status post section postoperative day #2 the patient is doing well she will be discharged home today
[2017-05-26] MEDS: Docusate Sodium 100 MG Cap PO SCH (12:30)
== END 2017-05-26 14:00 | disposition home or self-care (01) | DRG 540 ==
LOC: MW.OB 07:26
PROVIDERS: ADMIT Obstetrics & Gynecology; ATTEND Obstetrics & Gynecology
PROC: 10D00Z1 Extraction of Products of Conception, Low, Open Approach (ICD-10-PCS; principal; 2017-05-24)
DX: O34.211 Maternal care for low transverse scar from previous cesarean delivery (principal); Z3A.39 39 weeks gestation of pregnancy; Z37.0 Single live birth
CPT/HCPCS: 01961; 36415; 59025; 85014; 85018; 85027; 86850; 86900; 86901; A9270-GY; J0690; J1200; J1885; J2270; J2300; J2405; J2590; J3010; J7120

== ENCOUNTER 2019-07-07 05:54 | Inpatient (IN) | payer BC ==
[2019-07-07] MEDS ORDERED: Sodium Chloride 0.9% 10 ML Syringe FLUSH PRN (06:08)
[2019-07-07] MEDS ORDERED: Sodium Chloride 0.9% 10 ML SDV IV PRN (06:08)
[2019-07-07] MEDS ORDERED: Sodium Chloride 0.9% 2.5 ML Syringe FLUSH PRN (06:08)
[2019-07-07] MEDS ORDERED: Citric Acid/Sodium Citrate Solution 30 ML Cup PO ONE (06:08)
[2019-07-07] MEDS ORDERED: Oxytocin/0.9 % Sodium Chloride 30 UNIT/500 ML BAG IV SCH (06:15)
[2019-07-07] MEDS: Lactated Ringers 1,000 ML IV SCH ×3 (06:27→08:03)
--- NOTE | 2019-07-07 07:00 | PCM.PREANE ---
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" Family History of Anesthesia Reaction: No Transfusion History: No Prior Transfusion(s) Intubation History: Unknown - Review of Systems General: No Symptoms Pulmonary: No Symptoms Cardiovascular: No Symptoms Gastrointestinal: No Symptoms Neurological: No Symptoms Other: Reports: None - Physical Assessment Height: 5 ft 3 in Weight: 105.233 kg ASA Class: 2 Mental Status: Alert & Oriented x3 Airway Class: Mallampati = 2 Dentition: Reports: Normal Dentition Thyro-Mental Finger Breadths: 3 Mouth Opening Finger Breadths: 3 ROM/Head Extension: Full Lungs: Clear to Auscultation, Normal Respiratory Effort Cardiovascular: Regular Rate, Regular Rhythm - Lab Values: Laboratory Last Values WBC 9.03 K/uL (4.0-11.0) 07/07/19 06:22 RBC 5.46 M/uL (4.30-5.90) 07/07/19 06:22 Hgb 12.1 g/dL (12.0-16.0) 07/07/19 06:22 Hct 34.8 % (36.0-46.0) L 07/07/19 06:22 MCV 63.7 fL (80.0-98.0) L 07/07/19 06:22 MCH 22.2 pg (27.0-32.0) L 07/07/19 06:22 MCHC 34.8 g/dL (31.0-37.0) 07/07/19 06:22 RDW Std Deviation 34.1 fl (28.0-62.0) 07/07/19 06:22 RDW Coeff of Cammie 15 % (11.0-15.0) 07/07/19 06:22 Plt Count 195 K/uL (150-400) 07/07/19 06:22 Nucleated RBC % 0.0 /100WBC 07/07/19 06:22 Nucleated RBCs # 0 K/uL 07/07/19 06:22 - Allergies Allergies/Adverse Reactions: Allergies Allergy/AdvReac Type Severity Reaction Status Date / Time latex Allergy Itching Verified 07/01/19 14:30 - Blood Blood Available: No - Anesthesia Plan Pre-Op Medication Ordered: None - Acknowledgements Anesthesia Type Planned: Spinal (general anesthesia back-up plan) Pt an Appropriate Candidate for the Planned Anesthesia: Yes Alternatives and Risks of Anesthesia Discussed w Pt/Guardian: Yes Pt/Guardian Understands and Agrees with Anesthesia Plan: Yes PreAnesthesia Questionnaire - Past Health History Medical/Surgical History: Denies Medical/Surgical History HEENT History: Reports: None Cardiovascular History: Reports: Hypertension Respiratory History: Reports: None Gastrointestinal History: Reports: None Genitourinary History: Reports: None BACON STRINGER History: Reports: Musculoskeletal History: Reports: None Neurological History: Reports: Other (See Below) Other Neuro History: [place] after first c/section Psychiatric History: Reports: None Endocrine/Metabolic History: Reports: Obesity/BMI 30+ Hematologic History: Reports: None Immunologic History: Reports: None Oncologic (Cancer) History: Reports: None Dermatologic History: Reports: None - Past Surgical History Head Surgeries/Procedures: Reports: None HEENT Surgical History: Reports: None Cardiovascular Surgical History: Reports: None Respiratory Surgical History: Reports: None GI Surgical History: Reports: None Female Surgical History: Reports: Section (x2) Endocrine Surgical History: Reports: None Neurological Surgical History: Reports: None Musculoskeletal Surgical History: Reports: ORIF (mandible fracture at age 16) Oncologic Surgical History: Reports: None Dermatological Surgical History: Reports: None - SUBSTANCE USE Smoking Status *Q: Never Smoker - HOME MEDS Home Medications: Home Meds Pnv No.95/Ferrous Fum/Folic AC [ Tablet] 1 tab PO DAILY 04/11/19 [ History] NIFEdipine [Nifedipine ER] 1 tab PO DAILY 06/21/19 [History] - CURRENT (IN HOUSE) MEDS Current Meds: Current Medications Lactated Ringer's (Ringers, Lactated) 1,000 mls @ 500 mls/hr IV BOLUS [facility] Last Admin: 07/07/19 06:27 Dose: 500 mls/hr Oxytocin/Sodium Chloride (Oxytocin 30 Unit/500 Ml-Ns) 30 unit in 500 mls @ 250 mls/hr IV TITRATE [facility] Sodium Chloride (Saline Flush) 10 ml FLUSH ASDIRECTED PRN PRN Reason: Keep Vein Open Sodium Chloride (Saline Flush) 2.5 ml FLUSH ASDIRECTED PRN PRN Reason: Keep Vein Open Sodium Chloride (Normal Saline) 10 ml IV ASDIRECTED PRN PRN Reason: IV Use Discontinued Medications Citric Acid/Sodium Citrate (Bicitra Solution) 30 ml PO ONETIME ONE Stop: 07/07/19 06:09
[2019-07-07] MEDS ORDERED: Acetaminophen/oxyCODONE 325-5 MG Tab PO PRN ×2 (07:07→09:12)
[2019-07-07] MEDS ORDERED: Morphine PF 10 MG/10 ML SDV ONE (07:10)
[2019-07-07] MEDS ORDERED: ceFAZolin 1 GM Vial ONE (07:10)
[2019-07-07] MEDS ORDERED: Sodium Chloride 0.9% 20 ML ONE (07:10)
[2019-07-07] MEDS ORDERED: Phenylephrine/Normal Saline 100 MCG/ML 10 ML Syringe ONE (07:11)
[2019-07-07] MEDS ORDERED: Oxytocin 10 Units/1 ML SDV ONE (07:20)
--- NOTE | 2019-07-07 07:31 | PCM.LDHP ---
L&D History of Present Illness - General Date of Service: 07/07/19 Admit Problem/Dx: Patient Status Order with Admit Dx/Problem 07/07/19 06:08 Patient Status [ADT] Routine Admission Diagnosis/Problem Admission Diagnosis/Problem 07/07/19 07:36 44 yo at 38 1/7 weeks gestation admitted for repeat delivery (#3) , GBS negative, Rubella Immune, O+ 07/07/19 07:40 Source of Information: Patient History Limitations: Reports: No Limitations - Related Data Allergies/Adverse Reactions: Allergies Allergy/AdvReac Type Severity Reaction Status Date / Time latex Allergy Itching Verified 07/07/19 07:00 Home Medications: Home Meds Pnv No.95/Ferrous Fum/Folic AC [ Tablet] 1 tab PO DAILY 04/11/19 [ History] NIFEdipine [Nifedipine ER] 1 tab PO DAILY 06/21/19 [History] Past Medical History - Past Health History Medical/Surgical History: Denies Medical/Surgical History HEENT History: Reports: None Cardiovascular History: Reports: Hypertension Respiratory History: Reports: None Gastrointestinal History: Reports: None Genitourinary History: Reports: None LEARNING CONSULTANT History: Reports: Musculoskeletal History: Reports: None Neurological History: Reports: Other (See Below) 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 Psychiatric History: Reports: None Endocrine/Metabolic History: Reports: Obesity/BMI 30+ Hematologic History: Reports: None Immunologic History: Reports: None Oncologic (Cancer) History: Reports: None Dermatologic History: Reports: None - Past Surgical History Head Surgeries/Procedures: Reports: None HEENT Surgical History: Reports: None Cardiovascular Surgical History: Reports: None Respiratory Surgical History: Reports: None GI Surgical History: Reports: None Female Surgical History: Reports: Section (x2) Endocrine Surgical History: Reports: None Neurological Surgical History: Reports: None Musculoskeletal Surgical History: Reports: ORIF (mandible fracture at age 16) Oncologic Surgical History: Reports: None Dermatological Surgical History: Reports: None Social & Family History - Family History Family Medical History: Noncontributory - Tobacco Use Smoking Status *Q: Never Smoker - Caffeine Use Caffeine Use: Reports: Coffee - Recreational Drug Use Drug Use in Last 12 Months: No H&P Review of Systems - Review of Systems: Review Of Systems: See Below General: Reports: No Symptoms HEENT: Reports: No Symptoms Pulmonary: Reports: No Symptoms Cardiovascular: Reports: No Symptoms Gastrointestinal: Reports: No Symptoms Genitourinary: Reports: No Symptoms Musculoskeletal: Reports: No Symptoms Skin: Reports: No Symptoms Psychiatric: Reports: No Symptoms Neurological: Reports: No Symptoms Hematologic/Lymphatic: Reports: No Symptoms Immunologic: Reports: No Symptoms L&D Exam - Exam Exam: See Below - Vital Signs Weight: 232 lb - Exam General: Alert, Oriented, Cooperative Lungs: Normal Respiratory Effort GI/Abdominal Exam: Soft, Non-Tender Rectal Exam: Deferred Genitourinary: Deferred Back Exam: Normal Inspection, Full Range of Motion Extremities: Normal Inspection, Normal Range of Motion, Non-Tender Skin: Warm, Dry, Intact Neurological: Strength Equal Bilateral, Normal Speech, Normal Tone, Sensation Intact Psychiatric: Alert, Normal Affect, Normal Mood - Patient Data Lab Results Last 24 hrs: Laboratory Results - last 24 hr 07/07/19 07/07/19 Range/Units 06:22 06:22 WBC 9.03 (4.0-11.0) K/uL RBC 5.46 (4.30-5.90) M/uL Hgb 12.1 (12.0-16.0) g/dL Hct 34.8 L (36.0-46.0) % MCV 63.7 L (80.0-98.0) fL MCH 22.2 L (27.0-32.0) pg MCHC 34.8 (31.0-37.0) g/dL RDW Std Deviation 34.1 (28.0-62.0) fl RDW Coeff of Cammie 15 (11.0-15.0) % Plt Count 195 (150-400) K/uL Nucleated RBC % 0.0 /100WBC Nucleated RBCs # 0 K/uL Blood Type O POSITIVE Antibody Screen NEGATIVE Result Diagrams: 07/07/19 06:22 - Problem List (1) Supervision of normal IUP (intrauterine ) in multigravida SNOMED Code(s): 596750735, 655528158, 125252074 ICD Code: Z34.80 - ENCOUNTER FOR SUPRVSN OF NORMAL , UNSP TRIMESTER Status: Acute Priority: High Current Visit: Yes Qualifiers: Trimester: third trimester Qualified Code(s): Z34.83 - Encounter for supervision of other normal , third trimester Problem List Initiated/Reviewed/Updated: Yes Orders Last 24hrs: Active Orders 24 hr Category Date Time Status Patient Status [ADT] Routine ADT 07/07/19 06:08 Active Non Stress Test [RC] PER UNIT ROUTINE Care 07/07/19 06:08 Active Notify Provider Vital Signs [RC] PRN Care 07/07/19 06:10 Active Procedure Site Prep Instruct [RC] ASDIRECTED Care 07/07/19 06:08 Active Up ad Maria M [RC] ASDIRECTED Care 07/07/19 06:08 Active Verify Patient Consent Obtain [RC] ASDIRECTED Care 07/07/19 06:08 Active Vital Signs [RC] PER UNIT ROUTINE Care 07/07/19 06:08 Active RPR (SYPHILIS SERO) W/ RFLX [REF] Routine Lab 07/07/19 06:22 Received Acetaminophen/oxyCODONE [Percocet 325-5 MG] Med 07/07/19 07:07 Ordered 1 tab PO Q4H PRN Lactated Ringers [Ringers, Lactated] 1,000 ml Med 07/07/19 06:15 Active IV BOLUS Oxytocin/0.9 % Sodium Chloride [Oxytocin 30 Unit/500 ML Med 07/07/19 06:15 Active -NS] 30 unit in 500 ml IV TITRATE Sodium Chloride 0.9% [Normal Saline] Med 07/07/19 06:08 Active 10 ml IV ASDIRECTED PRN Sodium Chloride 0.9% [Saline Flush] Med 07/07/19 06:08 Active 10 ml FLUSH ASDIRECTED PRN Sodium Chloride 0.9% [Saline Flush] Med 07/07/19 06:08 Active 2.5 ml FLUSH ASDIRECTED PRN Peripheral IV Insertion Adult [OM.PC] Routine Oth 07/07/19 06:08 Ordered Schedule Procedure [COMM] Per Unit Routine Oth 07/07/19 06:08 Ordered Resuscitation Status Routine Resus Stat 07/07/19 06:08 Ordered Medication Orders Lactated Ringer's (Ringers, Lactated) 1,000 mls @ 500 mls/hr IV BOLUS CY Last Admin: 07/07/19 07:04 Dose: 500 mls/hr Infusion: 07/07/19 07:04 Dose: 500 mls/hr Admin: 07/07/19 06:27 Dose: 500 mls/hr Oxytocin/Sodium Chloride (Oxytocin 30 Unit/500 Ml-Ns) 30 unit in 500 mls @ 250 mls/hr IV TITRATE CY Oxycodone/Acetaminophen (Percocet 325-5 Mg) 1 tab PO Q4H PRN PRN Reason: Pain (moderate 4-6) Sodium Chloride (Saline Flush) 10 ml FLUSH ASDIRECTED PRN PRN Reason: Keep Vein Open Sodium Chloride (Saline Flush) 2.5 ml FLUSH ASDIRECTED PRN PRN Reason: Keep Vein Open Sodium Chloride (Normal Saline) 10 ml IV ASDIRECTED PRN PRN Reason: IV Use Assessment/Plan Comment:: Admit A: 44 yo at 38 1/7 weeks gestation admitted for repeat delivery (# 3), Hx HTN, GBS negative, Rubella Immune, O+ P: delivery by Dr. Villa
[2019-07-07] MEDS ORDERED: Ondansetron 4 MG/2 ML SDV ONE (08:38)
[2019-07-07] MEDS ORDERED: Octyl 2-Cyanoacrylate 1 Tube ONE (08:50)
[2019-07-07] MEDS ORDERED: Tranexamic Acid 1,000 MG in Sodium Chloride 0.9% 100 ML IV PRN (09:12)
[2019-07-07] MEDS ORDERED: Bisacodyl 10 MG Supp RECTAL PRN (09:12)
[2019-07-07] MEDS ORDERED: Methylergonovine 0.2 MG/1 ML Amp IM PRN (09:12)
[2019-07-07] MEDS ORDERED: Oxytocin 10 Units/1 ML SDV IM PRN (09:12)
[2019-07-07] MEDS ORDERED: Ondansetron 4 MG/2 ML SDV IVPUSH PRN (09:12)
[2019-07-07] MEDS ORDERED: Lanolin 100% Cream 7 GM Tube TOP PRN (09:12)
[2019-07-07] MEDS ORDERED: Misoprostol 200 MCG Tab RECTAL PRN (09:12)
[2019-07-07] MEDS: Ketorolac 30 MG/ML SDV IVPUSH SCH ×3 (09:14→21:19)
[2019-07-07] MEDS ORDERED: Lactated Ringers 1,000 ML IV SCH (09:15)
--- NOTE | 2019-07-07 09:16 | PCM.OPNOTE ---
- General Post-Op/Procedure Note Date of Surgery/Procedure: 07/07/19 Operative Procedure(s): Repeat C/section. Pre Op Diagnosis: IUP 38+ wks, chronic hypertension. Post-Op Diagnosis: Same Anesthesia Technique: Spinal Primary Surgeon: Quintin Villa Fourdrinier Machine Operator: Lashawn Saleh EBL in mLs: 750 Complications: None Condition: Good
--- NOTE | 2019-07-07 09:59 | PCM.POSTAN ---
POST ANESTHESIA ASSESSMENT - MENTAL STATUS Mental Status: Alert - RESPIRATORY Respiratory Status: Respiratory Rate WNL - CARDIOVASCULAR CV Status: Pulse Rate WNL - GASTROINTESTINAL GI Status: No Symptoms - POST OP HYDRATION Hydration Status: Adequate & Stable
--- NOTE | 2019-07-07 11:23 | OR ---
SURGEON: Quintin Villa MD DATE OF PROCEDURE: PREOPERATIVE DIAGNOSES: Intrauterine at 38+ weeks, chronic hypertension. POSTOPERATIVE DIAGNOSES: Intrauterine at 38+ weeks, chronic hypertension. OPERATION PERFORMED: Repeat low transverse section. PRIMARY SURGEON: Quintin Villa MD. BACKSIDE GRINDER: Lashawn Saleh, certified nurse mineral surveyor. ANESTHESIA: General. Mr. Jose G Potter and Dr. Sellers. ESTIMATED BLOOD LOSS: 750 mL. COMPLICATIONS: None. FINDINGS: Male fetus, cried immediately. score reported to be 8 and 9. The weight is not available. Normal uterus, tubes, and ovaries. INDICATIONS FOR SURGERY: This patient is 44. She has chronic hypertension. She is 38+ weeks. She had a previous section. She is admitted for elective repeat section before the 39 weeks because of her chronic hypertension and advanced maternal age. PROCEDURE IN DETAIL: The patient was brought to the OR, properly identified, and after adequate level of spinal anesthesia with a Isidro catheter in the bladder, the patient was prepped and draped in sterile fashion as usual. Low transverse Pfannenstiel skin incision was done through the old scar and the Gatito fascia and rectus fascia were opened in direction of the incision. The two recti muscles were and the peritoneal cavity was entered. Low transverse uterine incision was done with the knife and extended manually with the hand and fetus was in a vertex position. Delivered immediately. Cried immediately without any problem, and then after clamping the cord, the fetus was handed to the resuscitating team. The placenta delivered spontaneous, complete, and intact and then repair of the lower uterine segment was done with 2-0 Vicryl continuous interlocking in 2 layers. The peritoneal cavity evacuated completely from all blood and blood clot and the peritoneum and the rectus muscle were approximated at the midline with 3-0 Vicryl continuous. The rectus fascia was closed with #1 PDS double strand continuous, the Gatito fascia with 3-0 Vicryl continuous, and the skin closed with 3-0 Vicryl on a Riley needle in a subcuticular fashion. Instrument and sponge count was correct. The patient tolerated the procedure well, went to recovery room in stable general condition. RICKI / JACKL /[id number]
[2019-07-07] MEDS: diphenhydrAMINE 50 MG/ML SDV IVPUSH PRN ×2 (11:52→21:20)
[2019-07-07] MEDS ORDERED: Nalbuphine 10 MG/1 ML Vial IVPUSH PRN (12:28)
[2019-07-07] MEDS ORDERED: Naloxone 0.4 MG/ML Syringe IVPUSH PRN (12:28)
[2019-07-07] MEDS ORDERED: diphenhydrAMINE 50 MG/ML SDV IVPUSH PRN (12:28)
[2019-07-07] MEDS: Docusate Sodium 100 MG Cap PO SCH (21:19)
[2019-07-08] MEDS: Ketorolac 30 MG/ML SDV IVPUSH SCH ×2 (03:20→09:12)
--- NOTE | 2019-07-08 08:01 | PCM.PNPP ---
- General Info Date of Service: 07/08/19 Admission Dx/Problem (Free Text): Patient Status Order with Admit Dx/Problem 07/07/19 06:08 Patient Status [ADT] Routine Admission Diagnosis/Problem Admission Diagnosis/Problem 07/07/19 07:36 44 yo at 38 1/7 weeks gestation admitted for repeat delivery (#3) , GBS negative, Rubella Immune, O+ 07/07/19 07:40 Functional Status: Reports: Pain Controlled, Tolerating Diet, Ambulating, Urinating - Review of Systems General: Reports: No Symptoms HEENT: Reports: No Symptoms Pulmonary: Reports: No Symptoms Cardiovascular: Reports: No Symptoms Gastrointestinal: Reports: No Symptoms Genitourinary: Reports: No Symptoms Musculoskeletal: Reports: No Symptoms Skin: Reports: No Symptoms Neurological: Reports: No Symptoms Psychiatric: Reports: No Symptoms - Patient Data Vital Signs - Most Recent: Last Vital Signs Temp 36.3 C 07/08/19 05:00 Pulse 97 07/08/19 06:42 Resp 15 07/08/19 06:42 BP 122/79 07/08/19 05:00 Pulse Ox 97 07/08/19 06:42 Weight - Most Recent: 105.233 kg I&O - Last 24 Hours: Intake & Output 07/07/19 07/08/19 07/08/19 22:59 06:59 14:59 Intake Total 620 Output Total 525 950 Balance -525 -330 Lab Results - Last 24 Hours: Laboratory Results - last 24 hr 07/08/19 Range/Units 05:46 Hgb 10.2 L (12.0-16.0) g/dL Hct 29.8 L (36.0-46.0) % Med Orders - Current: Current Medications Bisacodyl (Dulcolax) 10 mg RECTAL ONETIME PRN PRN Reason: Constipation Diphenhydramine HCl (Benadryl) 25 mg IVPUSH Q6H PRN PRN Reason: Itching or Nausea Last Admin: 07/07/19 21:20 Dose: 25 mg Diphenhydramine HCl (Benadryl) 25 mg IVPUSH Q4H PRN PRN Reason: Itching Stop: 07/08/19 12:28 Docusate Sodium (Colace) 100 mg PO BID CY Last Admin: 07/07/19 21:19 Dose: 100 mg Emollient Ointment (Lansinoh Hpa) 0 gm TOP ASDIRECTED PRN PRN Reason: Sore Nipples Lactated Ringer's (Ringers, Lactated) 1,000 mls @ 500 mls/hr IV BOLUS [facility] Last Admin: 07/07/19 08:03 Dose: 500 mls/hr Oxytocin/Sodium Chloride (Oxytocin 30 Unit/500 Ml-Ns) 30 unit in 500 mls @ 250 mls/hr IV TITRATE [facility] Tranexamic Acid 1,000 mg/ (Sodium Chloride) 110 mls @ 660 mls/hr IV ONETIME PRN PRN Reason: Bleeding Lactated Ringer's (Ringers, Lactated) 1,000 mls @ 125 mls/hr IV ASDIRECTED [facility] Last Admin: 07/07/19 10:41 Dose: 125 mls/hr Ibuprofen (Motrin) 800 mg PO Q8H PRN PRN Reason: mild pain or fever Ketorolac Tromethamine (Toradol) 30 mg IVPUSH Q6H [facility] Stop: 07/08/19 09:16 Last Admin: 07/08/19 03:20 Dose: 30 mg Methylergonovine Maleate (Methergine) 0.2 mg IM ONETIME PRN PRN Reason: Excessive Vaginal Bleeding Misoprostol (Cytotec) 1,000 mcg RECTAL ONETIME PRN PRN Reason: excessive bleeding Nalbuphine HCl (Nubain) 5 mg IVPUSH Q3H PRN PRN Reason: Pruritis Stop: 07/08/19 12:28 Naloxone HCl (Narcan) 0.1 mg IVPUSH ONETIME PRN PRN Reason: Respiratory Depression Stop: 07/08/19 12:28 Ondansetron HCl (Zofran) 4 mg IVPUSH Q4H PRN PRN Reason: Nausea/Vomiting Oxycodone/Acetaminophen (Percocet 325-5 Mg) 1 tab PO Q4H PRN PRN Reason: Pain (moderate 4-6) Oxycodone/Acetaminophen (Percocet 325-5 Mg) 1 tab PO Q4H PRN PRN Reason: Pain (moderate 4-6) Oxycodone/Acetaminophen (Percocet 325-5 Mg) 2 tab PO Q4H PRN PRN Reason: Pain (moderate 4-6) Oxytocin (Pitocin) 10 unit IM ASDIRECTED PRN PRN Reason: Excessive Vaginal Bleeding Sodium Chloride (Saline Flush) 10 ml FLUSH ASDIRECTED PRN PRN Reason: Keep Vein Open Sodium Chloride (Saline Flush) 2.5 ml FLUSH ASDIRECTED PRN PRN Reason: Keep Vein Open Sodium Chloride (Normal Saline) 10 ml IV ASDIRECTED PRN PRN Reason: IV Use Discontinued Medications Cefazolin Sodium (Ancef) Confirm Administered Dose 2 gm .ROUTE .STK-MED ONE Stop: 07/07/19 07:11 Citric Acid/Sodium Citrate (Bicitra Solution) 30 ml PO ONETIME ONE Stop: 07/07/19 06:09 Last Admin: 07/07/19 07:10 Dose: 30 ml Sodium Chloride (Normal Saline) Confirm Administered Dose 20 mls @ as directed .ROUTE .STK-MED ONE Stop: 07/07/19 07:11 Lidocaine HCl (Xylocaine-Mpf 1%) Confirm Administered Dose 5 ml .ROUTE .STK-MED ONE Stop: 07/07/19 08:06 Morphine Sulfate (Duramorph Pf) Confirm Administered Dose 10 mg .ROUTE .STK-MED ONE Stop: 07/07/19 07:11 Octyl Cyanoacrylate (Dermabond Advance) Confirm Administered Dose 1 applic .ROUTE .STK-MED ONE Stop: 07/07/19 08:51 Ondansetron HCl (Zofran) Confirm Administered Dose 4 mg .ROUTE .STK-MED ONE Stop: 07/07/19 08:39 Oxytocin (Pitocin) Confirm Administered Dose 20 unit .ROUTE .STK-MED ONE Stop: 07/07/19 07:21 Phenylephrine HCl (Phenylephrine In Ns 100 Mcg/Ml) Confirm Administered Dose 1 mg .ROUTE .STK-MED ONE Stop: 07/07/19 07:12 - Infant Interaction Disposition, : [place] in Room with Family Infant Interaction: Holding Infant Infant Feeding: Breastfed ; Nursed Well Support Person: Significant Other - Recovery Exam Fundal Tone: Firm Fundal Level: At Umbilicus Fundal Placement: Midline Lochia Amount: Small Lochia Color: Rubra/Red Bladder Status: Indwelling Catheter in Place Urinary Elimination: Indwelling Catheter - Exam General: Alert, Oriented, Cooperative, No Acute Distress Lungs: Clear to Auscultation, Normal Respiratory Effort Cardiovascular: Regular Rate, Regular Rhythm GI/Abdominal Exam: Soft, Non-Tender Extremities: Normal Range of Motion, Non-Tender Skin: Warm, Dry, Intact Wound/Incisions: Dressing Dry and Intact Neurological: No New Focal Deficit, Normal Speech, Normal Tone Psy/Mental Status: Alert, Normal Affect, Normal Mood - Problem List & Annotations (1) Status post repeat low transverse section SNOMED Code(s): 673395026, 95131514, 181967934, 171098345, 382935217 Code(s): Z98.891 - HISTORY OF UTERINE SCAR FROM PREVIOUS SURGERY Status: Acute Priority: High Current Visit: Yes - Problem List Review Problem List Initiated/Reviewed/Updated: Yes - Plan Plan:: Admit A: 44 yo at 38 1/7 weeks gestation admitted for repeat delivery (# 3), Hx HTN, GBS negative, Rubella Immune, O+ P: delivery by Dr. Villa PPD#1 A: VSS, AF, dressing dry and intact. Pain well managed with medication, Breast feeding well. Stable P:continue pp plan of care, encouraged to ambulate
--- NOTE | 2019-07-08 08:20 | PCM48HPAN ---
Post Anesthesia Note - EVALUATION WITHIN 48HRS OF ANESTHETIC Vital Signs in Normal Range: Yes Patient Participated in Evaluation: Yes Respiratory Function Stable: Yes Airway Patent: Yes Cardiovascular Function Stable: Yes Hydration Status Stable: Yes Pain Control Satisfactory: Yes Nausea and Vomiting Control Satisfactory: Yes Mental Status Recovered: Yes Vital Signs: Last Vital Signs Temp 97.3 F 07/08/19 05:00 Pulse 97 07/08/19 06:42 Resp 15 07/08/19 06:42 BP 122/79 07/08/19 05:00 Pulse Ox 97 07/08/19 06:42
[2019-07-08] MEDS: Docusate Sodium 100 MG Cap PO SCH (09:12)
[2019-07-08] MEDS: Ibuprofen 800 MG Tab PO PRN (15:37)
[2019-07-08] MEDS: Acetaminophen/oxyCODONE 325-5 MG Tab PO PRN (16:30)
[2019-07-08] MEDS ORDERED: NIFEdipine 30 MG Tab.ER PO SCH (18:25)
[2019-07-08] MEDS: NIFEDIPINE 60 MG PO SCH (23:06)
[2019-07-09] MEDS: Docusate Sodium 100 MG Cap PO SCH ×3 (00:27→10:18)
[2019-07-09] MEDS: Acetaminophen/oxyCODONE 325-5 MG Tab PO PRN ×2 (01:11→11:44)
[2019-07-09] MEDS: Ibuprofen 800 MG Tab PO PRN ×2 (01:11→10:18)
[2019-07-09] MEDS: NIFEDIPINE 60 MG PO SCH (10:20)
--- NOTE | 2019-07-09 10:54 | PCM.DCSUM1 ---
Discharge Summary - Hospital Course Free Text/Narrative:: Discharge home with infant. Follow up in 1 week for post op and 6 weeks for Diagnosis: Stroke: No Modified Walton Scale: No Symptoms at All Modified Walton Scale Score: 0 - Discharge Data Discharge Date: 07/09/19 Discharge Disposition: Home, Self-Care 01 Condition: Good - Referral to Home Health Primary Care Physician: PCP Unknown - Discharge Diagnosis/Problem(s) (1) Status post repeat low transverse section SNOMED Code(s): 405228899, 78601595, 826375361, 420019707, 546984924 ICD Code: Z98.891 - HISTORY OF UTERINE SCAR FROM PREVIOUS SURGERY Status: Acute Priority: High Current Visit: Yes - Patient Summary/Data Operative Procedure(s) Performed: Repeat C/section. - Patient Instructions Diet: Usual Diet as Tolerated Activity: As Tolerated, No Strenuous Activities, Rest and Relax Today Driving: May Drive Today Showering/Bathing: May Shower Notify Provider of: Fever, Increased Pain, Swelling and Redness, Drainage, Nausea and/or Vomiting - Discharge Plan *PRESCRIPTION DRUG MONITORING PROGRAM REVIEWED*: Not Applicable *COPY OF PRESCRIPTION DRUG MONITORING REPORT IN PATIENT JAGDISH: Not Applicable Home Medications: Home Meds Pnv No.95/Ferrous Fum/Folic AC [ Tablet] 1 tab PO DAILY 04/11/19 [ History] NIFEdipine [Nifedipine ER] 1 tab PO DAILY 06/21/19 [History] Oxygen Therapy Mode: Room Air Patient Handouts: and Inducing , Delivery, Care After Referrals: Zulema Jaquez,[facility] [Ordering Only Provider] - Quintin Villa MD [Physician] - 07/15/19 3:00 pm (1 week- July 15@3:00pm w/ Dr. Villa 6 week- August 18 @ 3:00pm w/ Dr. Villa ) - Discharge Summary/Plan Comment DC Time >30 min.: Yes Discharge Summary/Plan Comment: Discharge home with infant. Follow up in 1 week for post op and 6 weeks for - General Info Date of Service: 07/09/19 Admission Dx/Problem (Free Text: Patient Status Order with Admit Dx/Problem 07/07/19 06:08 Patient Status [ADT] Routine Admission Diagnosis/Problem Admission Diagnosis/Problem 07/07/19 07:36 44 yo at 38 1/7 weeks gestation admitted for repeat delivery (#3) , GBS negative, Rubella Immune, O+ 07/07/19 07:40 Functional Status: Reports: Pain Controlled, Tolerating Diet, Ambulating, Urinating - Review of Systems General: Reports: No Symptoms HEENT: Reports: No Symptoms Pulmonary: Reports: No Symptoms Cardiovascular: Reports: No Symptoms Gastrointestinal: Reports: No Symptoms Genitourinary: Reports: No Symptoms Musculoskeletal: Reports: No Symptoms Skin: Reports: No Symptoms Neurological: Reports: No Symptoms Psychiatric: Reports: No Symptoms - Patient Data Vitals - Most Recent: Last Vital Signs Temp 36.1 C 07/09/19 04:38 Pulse 78 07/09/19 04:38 Resp 16 07/09/19 04:38 BP 136/79 07/09/19 04:38 Pulse Ox 98 07/09/19 04:38 Weight - Most Recent: 105.233 kg I&O - Last 24 hours: Intake & Output 07/08/19 07/09/19 07/09/19 22:59 06:59 14:59 Output Total 800 Balance -800 Lab Results - Last 24 hrs: Laboratory Results - last 24 hr 07/07/19 Range/Units 06:22 RPR Non-Reac (Non-Reac) Med Orders - Current: Current Medications Bisacodyl (Dulcolax) 10 mg RECTAL ONETIME PRN PRN Reason: Constipation Diphenhydramine HCl (Benadryl) 25 mg IVPUSH Q6H PRN PRN Reason: Itching or Nausea Last Admin: 07/07/19 21:20 Dose: 25 mg Docusate Sodium (Colace) 100 mg PO BID [facility] Last Admin: 07/09/19 10:18 Dose: 100 mg Emollient Ointment (Lansinoh Hpa) 0 gm TOP ASDIRECTED PRN PRN Reason: Sore Nipples Last Admin: 07/08/19 15:38 Dose: 7 gram Lactated Ringer's (Ringers, Lactated) 1,000 mls @ 500 mls/hr IV BOLUS [facility] Last Admin: 07/07/19 08:03 Dose: 500 mls/hr Oxytocin/Sodium Chloride (Oxytocin 30 Unit/500 Ml-Ns) 30 unit in 500 mls @ 250 mls/hr IV TITRATE [facility] Tranexamic Acid 1,000 mg/ (Sodium Chloride) 110 mls @ 660 mls/hr IV ONETIME PRN PRN Reason: Bleeding Lactated Ringer's (Ringers, Lactated) 1,000 mls @ 125 mls/hr IV ASDIRECTED [facility] Last Admin: 07/07/19 10:41 Dose: 125 mls/hr Ibuprofen (Motrin) 800 mg PO Q8H PRN PRN Reason: mild pain or fever Last Admin: 07/09/19 10:18 Dose: 800 mg Methylergonovine Maleate (Methergine) 0.2 mg IM ONETIME PRN PRN Reason: Excessive Vaginal Bleeding Misoprostol (Cytotec) 1,000 mcg RECTAL ONETIME PRN PRN Reason: excessive bleeding Ondansetron HCl (Zofran) 4 mg IVPUSH Q4H PRN PRN Reason: Nausea/Vomiting Oxycodone/Acetaminophen (Percocet 325-5 Mg) 1 tab PO Q4H PRN PRN Reason: Pain (moderate 4-6) Oxycodone/Acetaminophen (Percocet 325-5 Mg) 1 tab PO Q4H PRN PRN Reason: Pain (moderate 4-6) Oxycodone/Acetaminophen (Percocet 325-5 Mg) 2 tab PO Q4H PRN PRN Reason: Pain (moderate 4-6) Last Admin: 07/09/19 01:11 Dose: 2 tab Oxytocin (Pitocin) 10 unit IM ASDIRECTED PRN PRN Reason: Excessive Vaginal Bleeding Nifedipine 60mg Tab (Er Own Med) 0 each PO DAILY [facility] Last Admin: 07/09/19 10:20 Dose: Not Given Sodium Chloride (Saline Flush) 10 ml FLUSH ASDIRECTED PRN PRN Reason: Keep Vein Open Sodium Chloride (Saline Flush) 2.5 ml FLUSH ASDIRECTED PRN PRN Reason: Keep Vein Open Sodium Chloride (Normal Saline) 10 ml IV ASDIRECTED PRN PRN Reason: IV Use Discontinued Medications Cefazolin Sodium (Ancef) Confirm Administered Dose 2 gm .ROUTE .STK-MED ONE Stop: 07/07/19 07:11 Citric Acid/Sodium Citrate (Bicitra Solution) 30 ml PO ONETIME ONE Stop: 07/07/19 06:09 Last Admin: 07/07/19 07:10 Dose: 30 ml Diphenhydramine HCl (Benadryl) 25 mg IVPUSH Q4H PRN PRN Reason: Itching Stop: 07/08/19 12:28 Sodium Chloride (Normal Saline) Confirm Administered Dose 20 mls @ as directed .ROUTE .STK-MED ONE Stop: 07/07/19 07:11 Ketorolac Tromethamine (Toradol) 30 mg IVPUSH Q6H [facility] Stop: 07/08/19 09:16 Last Admin: 07/08/19 09:12 Dose: 30 mg Lidocaine HCl (Xylocaine-Mpf 1%) Confirm Administered Dose 5 ml .ROUTE .STK-MED ONE Stop: 07/07/19 08:06 Morphine Sulfate (Duramorph Pf) Confirm Administered Dose 10 mg .ROUTE .STK-MED ONE Stop: 07/07/19 07:11 Nalbuphine HCl (Nubain) 5 mg IVPUSH Q3H PRN PRN Reason: Pruritis Stop: 07/08/19 12:28 Naloxone HCl (Narcan) 0.1 mg IVPUSH ONETIME PRN PRN Reason: Respiratory Depression Stop: 07/08/19 12:28 Nifedipine (Procardia Xl) 60 mg PO DAILY [facility] Last Admin: 07/08/19 23:07 Dose: Not Given Octyl Cyanoacrylate (Dermabond Advance) Confirm Administered Dose 1 applic .ROUTE .STK-MED ONE Stop: 07/07/19 08:51 Ondansetron HCl (Zofran) Confirm Administered Dose 4 mg .ROUTE .STK-MED ONE Stop: 07/07/19 08:39 Oxytocin (Pitocin) Confirm Administered Dose 20 unit .ROUTE .STK-MED ONE Stop: 07/07/19 07:21 Phenylephrine HCl (Phenylephrine In Ns 100 Mcg/Ml) Confirm Administered Dose 1 mg .ROUTE .STK-MED ONE Stop: 07/07/19 07:12 - Exam General: Reports: Alert, Oriented, Cooperative, No Acute Distress Lungs: Reports: Clear to Auscultation, Normal Respiratory Effort Cardiovascular: Reports: Regular Rate, Regular Rhythm GI/Abdominal Exam: Soft, Non-Tender (Female) Exam: Deferred, Vaginal Bleeding Rectal (Female) Exam: Deferred Back Exam: Reports: Normal Inspection, Full Range of Motion Extremities: Normal Inspection, Normal Range of Motion, Non-Tender, No Pedal Edema Skin: Reports: Warm, Dry, Intact Wound/Incisions: Reports: Healing Well, No Drainage. Denies: Erythema Neurological: Reports: No New Focal Deficit, Normal Speech, Normal Tone, Sensation Intact Psy/Mental Status: Reports: Alert, Normal Affect, Normal Mood
[2019-07-09 11:24] VITALS: BP 142/73; PULSE 81
== END 2019-07-09 15:29 | disposition home or self-care (01) | DRG 540 ==
LOC: MW.OB 05:54
PROVIDERS: ADMIT Obstetrics & Gynecology; ATTEND Obstetrics & Gynecology
PROC: 10D00Z1 Extraction of Products of Conception, Low, Open Approach (ICD-10-PCS; principal; 2019-07-07)
DX: O34.211 Maternal care for low transverse scar from previous cesarean delivery (principal); O10.92 Unspecified pre-existing hypertension complicating childbirth; O99.214 Obesity complicating childbirth; E66.9 Obesity, unspecified; Z37.0 Single live birth; Z91.040 Latex allergy status; Z3A.38 38 weeks gestation of pregnancy; Z79.899 Other long term (current) drug therapy
CPT/HCPCS: 01961; 36415; 51702; 59025; 85014; 85018; 85027; 86592; 86850; 86900; 86901; 88307; A9270-GY; J0690; J1200; J1885; J2001; J2270; J2370; J2405; J2590; J7120